=== PATIENT | female | born 1990 | race Caucasian/White ===

== ENCOUNTER 2017-02-17 16:09 | Emergency (ER) | payer OTHER ==
[~2017-02-17] VITALS: Ht 170.2 cm; Wt 71.4 kg
[~2017-02-17 16:09] MED LIST: ADDERALL10 MG PO; ADDERALL5 MG; ANTI-ANXIETY PO; ATARAX 25MG25 MG/TAB PO; AUGMENTIN XR 101 TER PO; BENADRYL25 M2 PO; BRINTELLIX10 PO; CATAPRES0.2 MG PO; DIFLUCAN150 MG PO; EPIPEN 2-PAK1 MG/ML IM; FLEXERIL5 MG PO; IMITREX 6M6 MG/0.5 M SQ; LINZESS290CAP PO; MACROBID 1100 MG/CAP PO; MEDROL 4MG DOSPA4 MG PO; MOBIC 7.5MG7.5 MG PO; MOBIC15 MG PO; MULTI VITAMINS1 TAB PO; NAPROSYN500 MG PO; NO HOME MEDICATIONS; NORCO 325 MG-51 TAB PO; NORCO 325 MG-7.1 TAB PO; PAMELOR 25MG25 MG PO; PEPCID 20MG TAB20 MG PO; PERCOCET 325 MG1 TA2 PO; PERCOCET 325 MG1 TA3 PO; PHENERGAN 25 TA25 MG PO; PHENERGAN25 MG RC; PREDNISONE20 MG PO; PROVENTIL0.09 MG/A1 IH; PYRIDIUM200 M1 PO; REGLAN 5MG T5 MG/TAB PO; RESTORIL 1515 MG/CAP; RESTORIL 77.5 MG/CAP PO; ULTRAM 50MG TAB50 MG PO; WELLBUTRIN 75MG75 MG PO; XANAX .25M0.25 MG/TA PO; ZOFRAN 4MG T4 MG/TAB PO; ZOLOFT 100MG100 MG; ZOLOFT 100MG100 MG PO
[2017-02-17 16:11] VITALS: BP 128/84; TEMP 98.7
[2017-02-17] MEDS ORDERED: PREDNISONE20 MG PO (19:10)
[2017-02-17 19:27] VITALS: PULSE 79
== END 2017-02-17 19:28 | disposition home or self-care (01) ==
LOC: COL.ER 16:09
DX: G43.909 Migraine, unspecified, not intractable, without status migrainosus (principal); R21 Rash and other nonspecific skin eruption; Z87.820 Personal history of traumatic brain injury
CPT/HCPCS: J1170; J1200; J2550; J7030; J7512

== ENCOUNTER 2019-05-05 17:26 | Emergency (ER) | payer OTHER ==
[~2019-05-05] VITALS: Ht 170.2 cm; Wt 70.5 kg
[2019-05-05 17:30] VITALS: TEMP 98.9
[2019-05-05 18:44] LABS: COLLECTION METHOD CLEAN CATCH
[2019-05-05 18:57] LABS: MUCOUS Present /lpf; PH 6 (5-8); URINE APPEARANCE Hazy; URINE BACTERIA None Seen /hpf; URINE BILIRUBIN Negative (NEGATIVE); URINE BLOOD 1+ (NEGATIVE); URINE COLOR Yellow; URINE GLUCOSE Negative (NEGATIVE); URINE KETONE Negative (NEGATIVE); URINE LEUKOCYTE ESTERASE Negative (NEGATIVE); URINE NITRATE Negative (NEGATIVE); URINE PROTEIN(semi-quant) Negative (NEGATIVE); URINE RBC 0-2 /hpf; URINE UROBILINOGEN Negative (NEGATIVE)
[2019-05-05 20:00] VITALS: BP 109/65; PULSE 95
== END 2019-05-05 20:14 | disposition home or self-care (01) ==
LOC: COL.ER 17:26
PROVIDERS: Nurse Practitioner
DX: S20.211A Contusion of right front wall of thorax, initial encounter (principal); J45.909 Unspecified asthma, uncomplicated; K58.9 Irritable bowel syndrome, unspecified; B19.20 Unspecified viral hepatitis C without hepatic coma; W01.198A Fall on same level from slipping, tripping and stumbling with subsequent striking against other object, initial encounter; Y92.410 Unspecified street and highway as the place of occurrence of the external cause

== ENCOUNTER 2019-08-02 12:06 | Emergency (ER) | payer OTHER ==
[~2019-08-02] VITALS: Ht 170.2 cm; Wt 68.2 kg
[2019-08-02 12:23] VITALS: TEMP 99
[2019-08-02 14:30] LABS: BASO % 0.3 % (0.0-2.0); EOS # 0.1 (0.0-0.7); EOS % 1.2 % (0-4.0); GRAN # 3.4 (1.4-6.5); HEMATOCRIT 41.4 % (37.0-47.0); HEMOGLOBIN 14.6 g/dl (12.5-16.0); LYMPH # 1.8 (1.2-3.4); LYMPH % 31.1 % (20.0-51.0); MEAN CELL VOLUME 86 fl (80.0-100.0); MEAN CORPUSCULAR HEMOGLOBIN 31 pg (27.0-31.0); MEAN CORPUSCULAR HGB CONC 35 g/dl (33.0-37.0); MEAN PLATELET VOLUME 9.9 fl (7.4-10.4); MONO # 0.5 (0.1-0.6); MONO % 8.1 % (1.7-9.3); PLATELET COUNT 198 K/mm3 (130-400); RED BLOOD COUNT 4.79 M/mm3 (4.10-5.30); REDCELL DISTRIBUTION WIDTH-CV 11.2 % (11.5-14.5)
[2019-08-02] MEDS ORDERED: EMGALITY120 MG/1 M SQ (14:35)
[2019-08-02] MEDS ORDERED: BENTYL 10MG10 MG/CAP PO (14:35)
[2019-08-02] MEDS ORDERED: VERAPAMIL 440 MG/TAB PO (14:36)
[2019-08-02 14:38] LABS: ALANINE AMINOTRANSFERASE 21 U/L (9-52); ALBUMIN 4.6 gm/dL (3.5-5.0); ALKALINE PHOSPHATASE 72 U/L (50-136); ANION GAP 9 mmol/L (7-16); AST,SGOT 26 U/L (15-37); BILIRUBIN,TOTAL 0.5 mg/dL (0.0-1.0); BLOOD UREA NITROGEN 22 mg/dL (7-17); CALCIUM 9.2 mg/dL (8.4-10.2); CARBON DIOXIDE 27 mmol/L (22-30); CHLORIDE 104 mmol/L (98-107); CREATININE, serum 0.83 (0.52-1.25); GLUCOSE 89 mg/dL (74-106); POTASSIUM 4.2 mmol/L (3.4-5.0); SODIUM 139 mmol/L (137-145); TOTAL PROTEIN 7.9 gm/dL (6.4-8.2)
[2019-08-02] MEDS ORDERED: BRINTELLIX20 (14:38)
[2019-08-02 14:39] LABS: C-REACTIVE PROTEIN < 0.5 mg/dL (0.0-0.9)
[2019-08-02 15:54] LABS: COLLECTION METHOD CLEAN CATCH
[2019-08-02 16:02] LABS: PH 7 (5-8); SQUAMOUS EPITHELIAL 0-2 /hpf; URINE APPEARANCE Clear; URINE BACTERIA Rare /hpf; URINE BILIRUBIN Negative (NEGATIVE); URINE BLOOD Negative (NEGATIVE); URINE COLOR Straw; URINE GLUCOSE Negative (NEGATIVE); URINE KETONE Negative (NEGATIVE); URINE LEUKOCYTE ESTERASE Negative (NEGATIVE); URINE NITRATE Negative (NEGATIVE); URINE PROTEIN(semi-quant) Negative (NEGATIVE); URINE RBC None Seen /hpf; URINE UROBILINOGEN Negative (NEGATIVE)
[2019-08-02] MEDS ORDERED: GOLYTELY SOLU4000 ML PO (16:14)
[2019-08-02 16:45] VITALS: BP 109/73; PULSE 90
== END 2019-08-02 16:45 | disposition home or self-care (01) ==
LOC: COL.ER 12:06
PROVIDERS: Nurse Practitioner
DX: K59.00 Constipation, unspecified (principal); Z88.5 Allergy status to narcotic agent; Z90.89 Acquired absence of other organs
CPT/HCPCS: J1170; J1200; J2405; J2550; J3010; J7030

== ENCOUNTER 2019-09-15 17:09 | Emergency (ER) | payer OTHER ==
[~2019-09-15] VITALS: Ht 170.2 cm; Wt 70.5 kg
[~2019-09-15 17:09] MED LIST changes: +BENTYL 10MG10 MG/CAP PO; +BRINTELLIX20; +EMGALITY120 MG/1 M SQ; +GOLYTELY SOLU4000 ML PO; -RESTORIL 77.5 MG/CAP PO; +RESTORIL30 MG; +VERAPAMIL 440 MG/TAB PO
[2019-09-15 17:23] VITALS: BP 111/81; TEMP 97.7
[2019-09-15 18:26] LABS: COLLECTION METHOD CLEAN CATCH
[2019-09-15 18:28] LABS: BASO % 0.3 % (0.0-2.0); EOS # 0.1 (0.0-0.7); EOS % 1.1 % (0-4.0); GRAN # 3.8 (1.4-6.5); GRAN % 60.9 % (42.2-75.2); HEMATOCRIT 40.8 % (37.0-47.0); LYMPH # 1.9 (1.2-3.4); LYMPH % 30.8 % (20.0-51.0); MEAN CELL VOLUME 87 fl (80.0-100.0); MEAN CORPUSCULAR HEMOGLOBIN 30 pg (27.0-31.0); MEAN CORPUSCULAR HGB CONC 34 g/dl (33.0-37.0); MONO # 0.4 (0.1-0.6); MONO % 6.7 % (1.7-9.3); PLATELET COUNT 206 K/mm3 (130-400); RED BLOOD COUNT 4.69 M/mm3 (4.10-5.30); REDCELL DISTRIBUTION WIDTH-CV 11.8 % (11.5-14.5)
[2019-09-15 18:34] LABS: MUCOUS Present /lpf; PH 6 (5-8); SQUAMOUS EPITHELIAL 0-2 /hpf; URINE APPEARANCE Clear; URINE BACTERIA Rare /hpf; URINE BILIRUBIN Negative (NEGATIVE); URINE BLOOD Negative (NEGATIVE); URINE COLOR Straw; URINE GLUCOSE Negative (NEGATIVE); URINE KETONE Negative (NEGATIVE); URINE LEUKOCYTE ESTERASE Negative (NEGATIVE); URINE NITRATE Negative (NEGATIVE); URINE PROTEIN(semi-quant) Negative (NEGATIVE); URINE RBC 0-2 /hpf; URINE UROBILINOGEN Negative (NEGATIVE)
[2019-09-15 18:42] LABS: ALANINE AMINOTRANSFERASE 24 U/L (9-52); ALBUMIN 4.5 gm/dL (3.5-5.0); ALKALINE PHOSPHATASE 65 U/L (50-136); ANION GAP 9 mmol/L (7-16); AST,SGOT 28 U/L (15-37); BILIRUBIN,TOTAL 0.5 mg/dL (0.0-1.0); BLOOD UREA NITROGEN 11 mg/dL (7-17); CALCIUM 8.9 mg/dL (8.4-10.2); CARBON DIOXIDE 26 mmol/L (22-30); CHLORIDE 106 mmol/L (98-107); CREATININE, serum 0.79 (0.52-1.25); GLUCOSE 91 mg/dL (74-106); LIPASE 62 U/L (23-300); POTASSIUM 4.2 mmol/L (3.4-5.0); SODIUM 140 mmol/L (137-145); TOTAL PROTEIN 7.6 gm/dL (6.4-8.2)
[2019-09-15 18:43] LABS: C-REACTIVE PROTEIN < 0.5 mg/dL (0.0-0.9)
[2019-09-15] MEDS ORDERED: NORCO 325 MG-51 TAB PO (20:38)
[2019-09-15] MEDS ORDERED: PHENERGAN 25 TA25 MG PO (20:39)
[2019-09-15 20:54] VITALS: PULSE 77
== END 2019-09-15 20:50 | disposition home or self-care (01) ==
LOC: COL.ER 17:09
PROVIDERS: Emergency Medicine
DX: R11.0 Nausea (principal); R10.11 Right upper quadrant pain; F32.9 Major depressive disorder, single episode, unspecified; F41.9 Anxiety disorder, unspecified; G43.909 Migraine, unspecified, not intractable, without status migrainosus; Z88.8 Allergy status to other drugs, medicaments and biological substances
CPT/HCPCS: J1170; J2550; J7030

== ENCOUNTER → 2019-10-13 | Outpatient (CLI) | payer OTHER | LOC: COL.RAD 10:07 | DX: N83.02 Follicular cyst of left ovary (principal); I88.0 Nonspecific mesenteric lymphadenitis; R93.89 Abnormal findings on diagnostic imaging of other specified body structures | CPT/HCPCS: Q9967 ==

== ENCOUNTER → 2019-11-30 | Outpatient (CLI) | payer OTHER | LOC: COL.RAD 10:07 | DX: N80.3 Endometriosis of pelvic peritoneum (principal) | CPT/HCPCS: Q9967 ==

== ENCOUNTER 2020-01-16 15:34 | Emergency (ER) | payer OTHER ==
[~2020-01-16] VITALS: Ht 170.2 cm; Wt 70.5 kg
[2020-01-16 15:52] VITALS: TEMP 98.5
[2020-01-16 17:03] LABS: BASO % 0.3 % (0.0-2.0); EOS # 0.1 (0.0-0.7); GRAN # 4.3 (1.4-6.5); GRAN % 59.1 % (42.2-75.2); HEMATOCRIT 40.5 % (37.0-47.0); HEMOGLOBIN 14.3 g/dl (12.5-16.0); LYMPH # 2.3 (1.2-3.4); LYMPH % 32.1 % (20.0-51.0); MEAN CELL VOLUME 86 fl (80.0-100.0); MEAN CORPUSCULAR HEMOGLOBIN 30 pg (27.0-31.0); MEAN CORPUSCULAR HGB CONC 35 g/dl (33.0-37.0); MONO # 0.5 (0.1-0.6); MONO % 7.2 % (1.7-9.3); PLATELET COUNT 193 K/mm3 (130-400); REDCELL DISTRIBUTION WIDTH-CV 11.4 % (11.5-14.5)
[2020-01-16 17:17] LABS: ANION GAP 8 mmol/L (7-16); BLOOD UREA NITROGEN 13 mg/dL (7-17); CALCIUM 9.2 mg/dL (8.4-10.2); CARBON DIOXIDE 23 mmol/L (22-30); CHLORIDE 105 mmol/L (98-107); CREATININE, serum 0.77 (0.52-1.25); GLUCOSE 96 mg/dL (74-106); POTASSIUM 3.7 mmol/L (3.4-5.0); SODIUM 136 mmol/L (137-145)
[2020-01-16 17:22] LABS: C-REACTIVE PROTEIN < 0.5 mg/dL (0.0-0.9)
[2020-01-16 18:56] VITALS: BP 111/70; PULSE 94
== END 2020-01-16 18:45 | disposition home or self-care (01) ==
LOC: COL.ER 15:34
PROVIDERS: Emergency Medicine
DX: G43.909 Migraine, unspecified, not intractable, without status migrainosus (principal); R11.2 Nausea with vomiting, unspecified; G89.29 Other chronic pain; M54.2 Cervicalgia; M51.35 Other intervertebral disc degeneration, thoracolumbar region; K58.9 Irritable bowel syndrome, unspecified; J45.909 Unspecified asthma, uncomplicated; Z90.49 Acquired absence of other specified parts of digestive tract; Z98.890 Other specified postprocedural states; Z79.899 Other long term (current) drug therapy
CPT/HCPCS: J1170; J1200; J1790; J3360; J7030

== ENCOUNTER → 2020-02-15 | Outpatient (CLI) | payer OTHER | LOC: MHCPAIN 10:03 | DX: M54.5 Low back pain (principal); M54.2 Cervicalgia; R51 Headache | CPT/HCPCS: G0463 ==

== ENCOUNTER 2020-03-01 12:01 | Emergency (ER) | payer OTHER ==
[~2020-03-01] VITALS: Ht 170.2 cm; Wt 68.2 kg
[2020-03-01 12:29] LABS: BASO % 0.5 % (0.0-2.0); EOS % 0.8 % (0-4.0); GRAN % 50.5 % (42.2-75.2); HEMATOCRIT 40.7 % (37.0-47.0); LYMPH # 1.5 (1.2-3.4); LYMPH % 38.5 % (20.0-51.0); MEAN CELL VOLUME 89 fl (80.0-100.0); MEAN CORPUSCULAR HEMOGLOBIN 31 pg (27.0-31.0); MEAN CORPUSCULAR HGB CONC 34 g/dl (33.0-37.0); MEAN PLATELET VOLUME 9.9 fl (7.4-10.4); MONO # 0.4 (0.1-0.6); MONO % 9.4 % (1.7-9.3); PLATELET COUNT 220 K/mm3 (130-400); RED BLOOD COUNT 4.59 M/mm3 (4.10-5.30); REDCELL DISTRIBUTION WIDTH-CV 12.1 % (11.5-14.5)
[2020-03-01 12:42] LABS: ALBUMIN 4.5 gm/dL (3.5-5.0); BILIRUBIN,TOTAL 0.5 mg/dL (0.0-1.0); CALCIUM 9.5 mg/dL (8.4-10.2); CREATININE, serum 0.83 (0.52-1.25); POTASSIUM 4.1 mmol/L (3.4-5.0); TOTAL PROTEIN 7.7 gm/dL (6.4-8.2)
[2020-03-01 12:58] LABS: PROLACTIN 13.6 ng/mL (3.0-18.6)
[2020-03-01 14:55] VITALS: BP 101/57; PULSE 80
== END 2020-03-01 14:54 | disposition home or self-care (01) ==
LOC: COL.ER 12:01
PROVIDERS: Emergency Medicine
DX: R56.9 Unspecified convulsions (principal); F32.9 Major depressive disorder, single episode, unspecified
CPT/HCPCS: J1170; J2060; J2550

== ENCOUNTER 2020-09-17 15:25 | Emergency (ER) | payer OTHER ==
[~2020-09-17] VITALS: Ht 170.2 cm; Wt 70.0 kg
[~2020-09-17 15:25] MED LIST changes: -RESTORIL30 MG; +RESTORIL30 MG PO
[2020-09-17 15:34] VITALS: TEMP 97.7
[2020-09-17 16:17] LABS: BASO % 0.3 % (0.0-2.0); EOS % 0.4 % (0-4.0); GRAN # 4.8 (1.4-6.5); GRAN % 66.8 % (42.2-75.2); HEMATOCRIT 46.8 % (37.0-47.0); HEMOGLOBIN 15.9 g/dl (12.5-16.0); LYMPH # 1.8 (1.2-3.4); LYMPH % 25.3 % (20.0-51.0); MEAN CELL VOLUME 91 fl (80.0-100.0); MEAN CORPUSCULAR HEMOGLOBIN 31 pg (27.0-31.0); MEAN CORPUSCULAR HGB CONC 34 g/dl (33.0-37.0); MEAN PLATELET VOLUME 9.5 fl (7.4-10.4); MONO # 0.5 (0.1-0.6); MONO % 6.8 % (1.7-9.3); PLATELET COUNT 226 K/mm3 (130-400); RED BLOOD COUNT 5.17 M/mm3 (4.10-5.30); REDCELL DISTRIBUTION WIDTH-CV 11.4 % (11.5-14.5)
[2020-09-17 16:28] LABS: ALANINE AMINOTRANSFERASE 35 U/L (4-34); ALBUMIN 4.9 gm/dL (3.5-5.0); ALKALINE PHOSPHATASE 74 U/L (50-136); ANION GAP 7 mmol/L (7-16); AST,SGOT 41 U/L (15-37); BILIRUBIN,TOTAL 0.6 mg/dL (0.0-1.0); BLOOD UREA NITROGEN 18 mg/dL (7-17); CALCIUM 9.4 mg/dL (8.4-10.2); CARBON DIOXIDE 27 mmol/L (22-30); CHLORIDE 103 mmol/L (98-107); CREATININE, serum 0.84 (0.52-1.25); GLUCOSE 94 mg/dL (74-106); LIPASE 51 U/L (23-300); POTASSIUM 4.3 mmol/L (3.4-5.0); SODIUM 137 mmol/L (137-145); TOTAL PROTEIN 8.3 gm/dL (6.4-8.2)
[2020-09-17 16:36] LABS: COLLECTION METHOD CLEAN CATCH
[2020-09-17 16:40] LABS: C-REACTIVE PROTEIN < 0.5 mg/dL (0.0-0.9)
[2020-09-17 16:46] LABS: MUCOUS Present /lpf; PH 5 (5-8); URINE APPEARANCE Cloudy; URINE BACTERIA Rare /hpf; URINE BILIRUBIN Negative (NEGATIVE); URINE BLOOD Negative (NEGATIVE); URINE COLOR Yellow; URINE GLUCOSE Negative (NEGATIVE); URINE KETONE Negative (NEGATIVE); URINE LEUKOCYTE ESTERASE Negative (NEGATIVE); URINE NITRATE Negative (NEGATIVE); URINE PROTEIN(semi-quant) Negative (NEGATIVE); URINE RBC 0-2 /hpf; URINE UROBILINOGEN Negative (NEGATIVE)
[2020-09-17] MEDS ORDERED: AIMOVIG AU70 MG/1 ML SQ (16:50)
[2020-09-17] MEDS ORDERED: ZOFRAN ODT4 MG PO (19:35)
[2020-09-17 19:40] VITALS: BP 128/84; PULSE 98
== END 2020-09-17 19:40 | disposition home or self-care (01) ==
LOC: COL.ER 15:25
PROVIDERS: Nurse Practitioner Primary Care
DX: R10.31 Right lower quadrant pain (principal); R11.2 Nausea with vomiting, unspecified; J45.909 Unspecified asthma, uncomplicated; F32.9 Major depressive disorder, single episode, unspecified; Z20.822 Contact with and (suspected) exposure to COVID-19; Z87.820 Personal history of traumatic brain injury; Z88.6 Allergy status to analgesic agent
CPT/HCPCS: J0595; J2405; J7030; Q9967

== ENCOUNTER 2020-10-09 16:11 | Emergency (ER) | payer OTHER ==
[~2020-10-09] VITALS: Ht 170.2 cm; Wt 68.2 kg
[~2020-10-09 16:11] MED LIST changes: +AIMOVIG AU70 MG/1 ML SQ; +ZOFRAN ODT4 MG PO
[2020-10-09] MEDS ORDERED: VIMPAT100 MG PO (16:42)
[2020-10-09] MEDS ORDERED: VIMPAT50 MG PO (16:42)
[2020-10-09 20:05] VITALS: BP 122/85; PULSE 86; TEMP 98.1
== END 2020-10-09 20:05 | disposition home or self-care (01) ==
LOC: COL.ER 16:11
DX: R51.9 Headache, unspecified (principal); F32.9 Major depressive disorder, single episode, unspecified; F41.9 Anxiety disorder, unspecified; Z86.69 Personal history of other diseases of the nervous system and sense organs; Z88.6 Allergy status to analgesic agent; Z88.0 Allergy status to penicillin
CPT/HCPCS: J0595; J1200; J2550; J2765; J7030

== ENCOUNTER 2021-06-26 10:54 | Outpatient (CLI) | payer OTHER ==
[~2021-06-26] VITALS: Ht 170.2 cm; Wt 78.6 kg
[~2021-06-26 10:54] MED LIST changes: +RESTORIL22.5 MG PO; -RESTORIL30 MG PO; +VIMPAT100 MG PO
[2021-06-26 11:23] VITALS: BP 100/66; PULSE 85; TEMP 98
== END 2021-06-26 15:34 ==
LOC: EUO 10:54
DX: G43.709 Chronic migraine without aura, not intractable, without status migrainosus (principal); Z79.899 Other long term (current) drug therapy
CPT/HCPCS: J3032

== ENCOUNTER 2021-07-01 16:06 | Emergency (ER) | payer OTHER ==
[~2021-07-01] VITALS: Ht 170.2 cm; Wt 75.0 kg
[2021-07-01 16:14] VITALS: TEMP 97.5
[2021-07-01 17:46] LABS: BASO % 0.3 % (0.0-2.0); GRAN # 4.8 K/mm3 (1.4-6.5); GRAN % 71.3 % (42.2-75.2); HEMATOCRIT 41.8 % (37.0-47.0); HEMOGLOBIN 14.6 g/dl (12.5-16.0); LYMPH # 1.4 K/mm3 (1.2-3.4); LYMPH % 21.5 % (20.0-51.0); MEAN CELL VOLUME 85 fl (80.0-100.0); MEAN CORPUSCULAR HEMOGLOBIN 30 pg (27.0-31.0); MEAN CORPUSCULAR HGB CONC 35 g/dl (33.0-37.0); MEAN PLATELET VOLUME 9.6 fl (7.4-10.4); MONO # 0.4 K/mm3 (0.1-0.6); MONO % 6.6 % (1.7-9.3); PLATELET COUNT 213 K/mm3 (130-400); RED BLOOD COUNT 4.94 M/mm3 (4.10-5.30); REDCELL DISTRIBUTION WIDTH-CV 11.2 % (11.5-14.5)
[2021-07-01 18:08] LABS: ALBUMIN 4.6 gm/dL (3.5-5.0); BILIRUBIN,TOTAL 0.7 mg/dL (0.2-1.2); C-REACTIVE PROTEIN 0.08 mg/dL (0.00-0.50); CALCIUM 9.2 mg/dL (8.4-10.2); CREATININE, serum 0.94 mg/dL (0.57-1.11); TOTAL PROTEIN 7.6 gm/dL (6.2-8.1)
[2021-07-01 20:11] LABS: COLLECTION METHOD CLEAN CATCH
[2021-07-01 20:18] LABS: MUCOUS Present (NOT PRESENT); PH 6 (5-8); URINE APPEARANCE Hazy (CLEAR/HAZY); URINE BACTERIA None Seen (NONE SEEN); URINE BILIRUBIN Negative (NEGATIVE); URINE BLOOD Negative (NEGATIVE); URINE COLOR Yellow (YELLOW); URINE GLUCOSE Negative (NEGATIVE); URINE KETONE 1+ (NEGATIVE); URINE LEUKOCYTE ESTERASE Negative (NEGATIVE); URINE NITRATE Positive (NEGATIVE); URINE PROTEIN(semi-quant) Negative (NEGATIVE); URINE RBC 0-2 /hpf (0-2); URINE UROBILINOGEN Negative (NEGATIVE)
[2021-07-01] MEDS ORDERED: ZOFRAN ODT4 MG PO (21:10)
[2021-07-01 21:20] VITALS: BP 142/70; PULSE 76
== END 2021-07-01 21:34 | disposition home or self-care (01) ==
LOC: COL.ER 16:06
PROVIDERS: Nurse Practitioner
DX: R11.2 Nausea with vomiting, unspecified (principal); R10.31 Right lower quadrant pain; R10.32 Left lower quadrant pain; G43.909 Migraine, unspecified, not intractable, without status migrainosus; F41.9 Anxiety disorder, unspecified; K58.9 Irritable bowel syndrome, unspecified; F32.A Depression, unspecified; Z90.49 Acquired absence of other specified parts of digestive tract; Z88.5 Allergy status to narcotic agent; Z32.02 Encounter for pregnancy test, result negative; Z79.899 Other long term (current) drug therapy
CPT/HCPCS: J1200; J2405; J2550; J3010; J7030; Q2009

== ENCOUNTER → 2021-09-18 | Outpatient (CLI) | payer OTHER | LOC: EUO 14:09 | DX: G43.709 Chronic migraine without aura, not intractable, without status migrainosus (principal) | CPT/HCPCS: J3032 ==

== ENCOUNTER 2021-12-11 14:27 | Outpatient (CLI) | payer OTHER ==
[~2021-12-11] VITALS: Ht 170.2 cm; Wt 77.4 kg
[~2021-12-11 14:27] MED LIST changes: +CATAPRES 0.1MG0.1 MG PO; -CATAPRES0.2 MG PO; -RESTORIL22.5 MG PO; +RESTORIL30 MG PO
[2021-12-11 15:11] VITALS: BP 112/86; PULSE 85; TEMP 98.9
[2021-12-11 15:30] VITALS: BP 113/77; PULSE 95
[2021-12-11 15:45] VITALS: BP 109/72; PULSE 88
[2021-12-11 16:00] VITALS: BP 114/75; PULSE 95
[2021-12-11 16:15] VITALS: BP 115/72; PULSE 77
[2021-12-11 16:30] VITALS: BP 115/80; PULSE 77
== END 2021-12-11 16:45 | disposition home or self-care (01) ==
LOC: EUO 14:27
DX: G43.709 Chronic migraine without aura, not intractable, without status migrainosus (principal)
CPT/HCPCS: J3032

== ENCOUNTER 2022-03-05 14:56 | Outpatient (CLI) | payer OTHER ==
[~2022-03-05] VITALS: Ht 170.2 cm; Wt 78.6 kg
[2022-03-05 15:45] VITALS: BP 100/66; PULSE 101
[2022-03-05 16:20] VITALS: BP 105/73; PULSE 96
[2022-03-05 16:34] VITALS: BP 105/71; PULSE 99
[2022-03-05 17:02] VITALS: BP 122/73; PULSE 107; TEMP 98.2
== END 2022-03-05 17:05 ==
LOC: EUO 14:56 → EDSTATUS 15:00 → EUO 15:00
DX: G43.709 Chronic migraine without aura, not intractable, without status migrainosus (principal)
CPT/HCPCS: J3032

== ENCOUNTER → 2022-04-07 | Outpatient (CLI) | payer OTHER ==
[~2022-04-07] VITALS: Ht 170.2 cm; Wt 77.3 kg
[~2022-04-07] MED LIST changes: +MIRALAX PA17 GM/Dose PO
[2022-04-07 12:49] VITALS: BP 130/68; PULSE 93; TEMP 98.9
[2022-04-07 15:04] VITALS: BP 112/72; PULSE 68
[2022-04-07 15:15] VITALS: BP 92/64; PULSE 84
[2022-04-07 15:30] VITALS: BP 90/51; PULSE 79
== END ==
LOC: COL.RAD 12:29
DX: Z01.89 Encounter for other specified special examinations (principal)
CPT/HCPCS: A9575; J2250; J2704

== ENCOUNTER 2022-09-24 13:54 | Emergency (ER) | payer OTHER ==
[~2022-09-24] VITALS: Ht 170.2 cm; Wt 72.7 kg
[2022-09-24 14:24] LABS: COLLECTION METHOD CLEAN CATCH
[2022-09-24 14:31] LABS: BASO % 0.3 % (0.0-2.0); EOS # 0.1 K/mm3 (0.0-0.7); EOS % 1.3 % (0.0-4.0); GRAN # 3.2 K/mm3 (1.4-6.5); GRAN % 53.4 % (42.2-75.2); HEMOGLOBIN 15.7 g/dl (12.5-16.0); LYMPH # 2.3 K/mm3 (1.2-3.4); LYMPH % 38.1 % (20.0-51.0); MEAN CELL VOLUME 87 fl (80.0-100.0); MEAN CORPUSCULAR HEMOGLOBIN 31 pg (27-31); MEAN CORPUSCULAR HGB CONC 35 g/dl (33.0-37.0); MEAN PLATELET VOLUME 9.8 fl (7.4-10.4); MONO # 0.4 K/mm3 (0.1-0.6); MONO % 6.7 % (1.7-9.3); PLATELET COUNT 253 K/mm3 (130-400); RED BLOOD COUNT 5.15 M/mm3 (4.10-5.30); REDCELL DISTRIBUTION WIDTH-CV 11.1 % (11.5-14.5)
[2022-09-24 14:34] LABS: URINE APPEARANCE Clear (CLEAR/HAZY); URINE BLOOD Negative (NEGATIVE); URINE COLOR Yellow (YELLOW); URINE GLUCOSE Negative (NEGATIVE); URINE KETONE Negative (NEGATIVE); URINE NITRATE Negative (NEGATIVE); URINE PROTEIN(semi-quant) Negative (NEGATIVE); URINE UROBILINOGEN 0.2 E.U/dL (0.2-1.0)
[2022-09-24 14:36] LABS: MUCOUS Present (NOT PRESENT); URINE BACTERIA Rare /hpf (NONE SEEN)
[2022-09-24 14:46] LABS: ALANINE AMINOTRANSFERASE 20 U/L (0-55); ALBUMIN 4.7 gm/dL (3.5-5.0); ALKALINE PHOSPHATASE 71 U/L (40-150); ANION GAP 11 mmol/L (7-16); AST,SGOT 23 U/L (5-34); BILIRUBIN,TOTAL 0.4 mg/dL (0.2-1.2); BLOOD UREA NITROGEN 9 mg/dL (7-19); CALCIUM 9.9 mg/dL (8.4-10.2); CARBON DIOXIDE 23 mmol/L (22-29); CHLORIDE 107 mmol/L (98-107); CREATININE, serum 0.86 mg/dL (0.57-1.11); GLUCOSE 91 mg/dL (70-99); POTASSIUM 4.3 mmol/L (3.5-4.5); SODIUM 141 mmol/L (136-145); TOTAL PROTEIN 8.3 gm/dL (6.2-8.1)
[2022-09-24 14:51] LABS: ACETAMINOPHEN < 1.0 ug/mL (10-30); ALCOHOL(ethanol),MEDICAL < 10 mg/dL (0-10); SALICYLATE < 5.0 mg/dL (15.0-30.0)
[2022-09-24 15:02] LABS: TRICYCLIC ANTIDEPRESS URINE NEGATIVE
[2022-09-24] MEDS ORDERED: PHENERGAN 25 TA25 MG PO (16:10)
[2022-09-24 16:58] VITALS: BP 125/93; PULSE 87; TEMP 979
== END 2022-09-24 17:05 | disposition home or self-care (01) ==
LOC: COL.ER 13:54
PROVIDERS: Emergency Medicine; Physician Assistant
DX: R11.2 Nausea with vomiting, unspecified (principal); R10.31 Right lower quadrant pain; R51.9 Headache, unspecified; Z87.19 Personal history of other diseases of the digestive system; Z90.49 Acquired absence of other specified parts of digestive tract
CPT/HCPCS: J1200; J2060; J2550; J7030; Q9967